=== PATIENT | male | born 1995 | race Caucasian/White ===

== ENCOUNTER 2024-07-02 12:45 | Emergency (ER) | payer SELFPAY ==
[~2024-07-02] VITALS: Ht 182.8 cm; Wt 150.8 kg
[2024-07-02] MEDS ORDERED: METOPROLOL SUC100 M1 PO (12:50)
== END 2024-07-02 13:20 | disposition home or self-care (01) ==
LOC: ED 12:45
DX: K62.89 Other specified diseases of anus and rectum (principal); Z79.899 Other long term (current) drug therapy